=== PATIENT | male | born 2000 | race Two or more races ===

== ENCOUNTER 2024-10-14 03:14 | Inpatient (IN) | payer MEDICAID, OTHER ==
[~2024-10-14] VITALS: Ht 172.7 cm; Wt 96.4 kg
--- NOTE | 2024-10-14 03:48 | ED.PDOC ---
GI ASSESSMENT HPI Comments 24-year-old male who came to ER for abdominal pain. Patient denies any medical problems or any history of abdominal surgeries. States at about 12 midnight, he developed sudden onset, sharp right lower quadrant abdominal pain, 6-7/10 intensity, tender to touch and non radiating. States he felt nauseated, a st arted having watery, non bloody stools. REVIEW OF SYSTEMS: General: No fever, no chills, or fatigue HEENT: No sore throat, no earache, no congestion, no neck pain. Cardiac: No chest pain. No palpitations. Lungs: No shortness of breath, no cough. GI: (+) nausea, no vomiting, (+) diarrhea, no constipation, (+) abdominal pain : No dysuria, frequency, or urgency. No hematuria. Musculoskeletal: No joint pain , no joint swelling, no extremity edema. Skin: No rash, no itching. Neuro: No headache, no dizziness, no weakness PHYSICAL EXAM: General: Awake, alert and oriented. No acute distress. Skin: Skin in warm, dry and intact. Appropriate color for ethnicity. HEENT: The head is normocephalic and atraumatic. Conjunctivae are clear without exudates or hemorrhage. Sclera is non-icteric. EOM are intact. No signs of nystagmus. Eyelids are normal in appearance without swelling or lesions. Oral mucosa is pink and moist Neck: The neck is supple with normal range of motion. No JVD. Cardiac: Heart rate and rhythm are normal. No murmurs, gallops, or rubs are auscultated. Respiratory: No signs of respiratory distress. Lung sounds are clear in all lobes bilaterally without rales, rhonchi, or wheezes. Abdominal: Abdomen is soft, +RLQ tenderness, no guarding or rigidity. Extremities: Upper and lower extremities are atraumatic in appearance without deformity or edema. Neurological: The patient is awake, alert and oriented to person, place, and time with normal speech. Speech is clear. There is no facial asymmetry. Normal gait Psychiatric: Appropriate mood and affect. Good judgement and insight. Chief Complaint: Abdominal Pain Time Seen by MD: 03:47 Reviewed Notes: Nurses Notes Allergies: Coded Allergies: NO KNOWN ALLERGIES (Unverified , 10/14/24) Home Meds Active Scripts Tramadol Hcl (Tramadol Hcl) 50 Mg Tab, 50 MG PO Q6HP PRN for 3 Days, #12 TAB Prov:JUNIOR KIM DEPARTMENT CHAIRPERSON 10/15/24 Information Source: Patient Mode of Arrival: Ambulatory Timing: Hours Duration: Since onset Prehospital treatment: None Quality: Sharp Vomitus: None Stool: Watery Severity: Moderate Recent: None Recent Hx of: None Pain Location: RLQ Past Medical History PAST MEDICAL HISTORY: Denies Surgical History: Denies all surgeries Family History Family History: Reviewed,noncontributory to illness Social History Smoker: Non-Smoker Alcohol: Denies ETOH Use Drugs: Denies Drug Use Lives In: Home Was a procedure done? Was a procedure done?: No GI differential Dx Differential Diagnosis: Appendicitis, Cholecystitis, Constipation, Diverticular disease, Gastritis/PUD, Gastroenteritis, Inflammatory BD, UTI, Urolithiasis, Dehydration, Food Poisoning, Kidney Stone, Other X-Ray, Labs, Meds, VS Vital Signs Date Time Temp Pulse Resp B/P (MAP) Pulse Ox O2 Delivery O2 Flow Rate FiO2 10/14/24 08:00 97.5 58 16 125/71 (89) 99 97.5 10/14/24 05:58 67 16 125/90 (102) 95 10/14/24 03:16 98.5 72 18 129/95 98 98.5 Lab Test 10/14/24 03:53 10/14/24 03:36 Range/Units Urine Color Yellow Yellow Urine Clarity Clear Clear Urine pH 5.5 5.0-9.0 Urine Specific [place] 1.033 1.001-1.035 Urine Protein Trace H Negative Urine Ketones Negative Negative Urine Blood Negative Negative /uL Urine Nitrite Negative Negative Urine Bilirubin Negative Negative Urine Urobilinogen Normal Negative mg/dL Urine Leukocyte Esterase Negative Negative /uL Urine RBC 3 0 - 3 /hpf Urine Microscopic WBC 1 0-3 /HPF Urine Squamous Epithelial Cells Few <5 /hpf Urine Bacteria None seen None Seen /hpf Urine Mucus Few None Seen Urine Sperm Present None Seen /hpf Urine Glucose Normal Normal mg/dL White Blood Count 13.5 H 4.4-10.8 10^3/uL Red Blood Count 4.65 4.5-5.90 10^6/uL Hemoglobin 14.5 13.5-17.5 g/dL Hematocrit 41.4 41.0-53.0 % Mean Corpuscular Volume 89.1 80.0-100.0 fL Mean Corpuscular Hemoglobin 31.2 28.0-32.0 pg Mean Corpuscular Hemoglobin Concent 35.0 32.0-36.0 g/dL Red Cell Distribution Width 12.6 11.8-14.3 % Platelet Count 238 140-450 10^3/uL Mean Platelet Volume 9.8 6.9-10.8 fL Neutrophils (%) (Auto) 78.9 37.0-80.0 % Lymphocytes (%) (Auto) 13.8 10.0-50.0 % Monocytes (%) (Auto) 6.3 0.0-12.0 % Eosinophils (%) (Auto) 0.6 0.0-7.0 % Basophils (%) (Auto) 0.4 0.0-2.0 % Neutrophils # (Auto) 10.6 H 1.6-8.6 10 ^3/uL Lymphocytes # (Auto) 1.9 0.4-5.4 10 ^3/uL Monocytes # (Auto) 0.9 0-1.3 10 ^3/uL Eosinophils # (Auto) 0.1 0-0.8 10 ^3/uL Basophils # (Auto) 0.1 0-0.2 10 ^3/uL Nucleated Red Blood Cells 0.0 % Sodium Level 140 136-145 mmol/L Potassium Level 3.7 3.5-5.1 mmol/L Chloride Level 106 98-107 mmol/L Carbon Dioxide Level 24 20-31 mmol/L Anion Gap 10 5-15 Blood Urea Nitrogen 11 9-23 mg/dL Creatinine 0.96 0.700-1.30 mg/dL Glomerular Filtration Rate Calc 112 >90 mL/min BUN/Creatinine Ratio 11.5 10.0-20.0 Serum Glucose 100 74-106 mg/dL Calcium Level 9.5 8.7-10.4 mg/dL Exam: CT CT AB PEL WO CON-NO ORAL OR IV History: RLQ pain Comparison Study: None Technique: Multidetector spiral CT of the abdomen and pelvis was performed from lung bases to pubic symphysis. Imaging was performed without intravenous contrast. Coronal and sagittal multiplanar reformats were obtained from the axial data set by the technologist. Radiation Dose : 1. Abdomen/Pelvis: CTDIvol 12.57 mGy, DLP 738.1 mGy*cm. Findings: Evaluation of vasculature and solid organs is limited due to lack of intravenous contrast use. Lung Bases: Lung bases are clear. Visualized portions of the heart and pericardium are unremarkable. Liver: The liver is normal in size. No focal lesions. Diffusely hypoattenuating liver parenchyma consistent with hepatic steatosis. Gallbladder and Biliary Tree: The gallbladder is unremarkable. No intrahepatic or extrahepatic biliary ductal dilatation. Spleen: Unremarkable Pancreas: The pancreas is grossly unremarkable. Adrenal Glands: Unremarkable Kidneys: Kidneys are unremarkable without calculi or hydronephrosis. GI tract: The stomach is grossly normal in appearance. No evidence of small bowel wall thickening or abnormal dilatation to suggest bowel obstruction. Colonic diverticulosis without acute diverticulitis. The appendix is dilated measuring 8 mm with very mild fat stranding seen on the axial images. Peritoneum/mesentery/retroperitoneum. No evidence of free intraperitoneal air. No ascites. No evidence of suspicious lymphadenopathy. Abdominal Wall: Unremarkable. Vasculature: The visualized abdominal aorta is normal in size and caliber. Evaluation of abdominal and pelvic vessels is limited due to lack of intravenous contrast. Urinary Bladder: Grossly unremarkable for degree of distention. Pelvic Organs: Unremarkable. Musculoskeletal: No aggressive focal bony lesions, acute fractures or dislocatio n. IMPRESSION: 1. Mildly dilated appendix measuring 8 mm mild periappendiceal fat stranding may represent early acute appendicitis. No fluid collection. No pneumoperitoneum. 2. Hepatic steatosis. 3. Colonic diverticulosis without acute diverticulitis. Time of 1ST Reevaluation: 03:43 Reevaluation 1ST: Unchanged Patient Education/Counseling: Need For Follow Up Family Education/Counseling: No Family Present SEPSIS Sepsis Screen Date sepsis recognized/suspect: Oct 14, 2024 Time Sepsis recognized/suspect: 318 Recent Procedure: No On Antibiotic Therapy: No Respiratory Rate >20: No Heart Rate >90: No Temp<36 C (96.8 F) or >38.3 C: No SBP <90 or MAP <65 mmHG: No New Acute Mental Status Change: No Is the patient on CPAP, BIPAP,: No Physician Orders Ct Ab Pel Wo Con-No Oral Or Iv (10/14/24 03:33) * Surgical Consult (10/14/24 ) Vital Signs Date Time Temp Pulse Resp B/P (MAP) Pulse Ox O2 Delivery O2 Flow Rate FiO2 10/14/24 08:00 97.5 58 16 125/71 (89) 99 97.5 10/14/24 05:58 67 16 125/90 (102) 95 10/14/24 03:16 98.5 72 18 129/95 98 98.5 Laboratory Tests Test 10/14/24 03:36 White Blood Count 13.5 10^3/uL (4.4-10.8) H Departure 1 Departure Time of Disposition: 04:40 Impression: Primary Impression: Abdominal pain Disposition: ADMITTED INPATIENT Condition: Stable e-Prescriptions Tramadol Hcl (Tramadol Hcl) 50 Mg Tab 50 MG PO Q6HP PRN for 3 Days, #12 TAB Prov: ESTHELAJUNIOR HOLLEY Noe DEPARTMENT CHAIRPERSON 10/15/24 Comments MDM: 24-year-old male presents to the emergency department with 3 hours of right lower quadrant abdominal pain. Initial evaluation included thorough history, physical examination and a ppropriate diagnostic testing. Based on the clinical presentation and diagnostic findings, the patient appears to have suspected early appendicitis on CT scan. Given the complexity of the case and need for further management patient is being admitted to the hospitalist service for further surgical consultation, monitoring, treatment and evaluation. Risks, benefits and alternatives of admission and proposed interventions were discussed with the patient. Patient is in agreement with the plan. Extensive evaluation was performed in attempt to identify or rule out: (See differential diagnosis section) The following tests were ordered, and results were reviewed by me and discussed with patient: (See diagnostic results section) Decision regarding hospitalization or escalation of hospital level of care: Risk and benefits of admission for further treatment of patient's condition was considered. Due to patient's current clinical condition, high risk of decline and poor outcome if discharged and need for further inpatient management and m onitoring, patient will be admitted to the hospital. Critical Care Note Critical Care Time?: No Stability Stability form required: No Heart Score Heart Score: Heart Score Response (Comments) Value History N/A 0 EKG N/A 0 Age N/A 0 Risk Factors N/A 0 Troponin N/A 0 Total 0 I personally scribed for JILLIAN LO MD ([email or web address]) on 10/14/24 at 03:48. Electronically submitted by Yusef Avila ([email or web address]). I personally scribed for JILLIAN LO MD ([email or web address]) on 10/14/24 at 04:34. Electronically submitted by Yusef Avila ([email or web address]). JILLIAN LO MD Oct 14, 2024 03:48
[2024-10-14 03:54] LABS: Hematocrit 41.4 % (41.0-53.0); Hemoglobin 14.5 g/dL (13.5-17.5); Mean Corpuscular Hemoglobin 31.2 pg (28.0-32.0); Mean Corpuscular Volume 89.1 fL (80.0-100.0); Nucleated Red Blood Cells % 0.0 %
[2024-10-14 04:01] LABS: Chloride 106 mmol/L (98-107); Potassium 3.7 mmol/L (3.5-5.1); Sodium 140 mmol/L (136-145)
[2024-10-14 04:02] LABS: Anion Gap 10 (5-15); Calcium 9.5 mg/dL (8.7-10.4); Carbon Dioxide 24 mmol/L (20-31)
[2024-10-14 04:07] LABS: BUN/Creatinine Ratio 11.5 (10.0-20.0); Blood Urea Nitrogen 11 mg/dL (9-23); Glucose 100 mg/dL (74-106)
[2024-10-14 04:12] LABS: Urine Protein, UAD TRACE (Negative)
--- NOTE | 2024-10-14 04:15 | DVH ---
Exam: CT CT AB PEL WO CON-NO ORAL OR IV History: RLQ pain Comparison Study: None Technique: Multidetector spiral CT of the abdomen and pelvis was performed from lung bases to pubic s ymphysis. Imaging was performed without intravenous contrast. Coronal and sagittal multiplanar reform ats were obtained from the axial data set by the technologist. Radiation Dose : 1. Abdomen/Pelvis: CTDIvol 12.57 mGy, DLP 738.1 mGy*cm. Findings: Evaluation of vasculature and solid organs is limited due to lack of intravenous contrast use. Lung Bases: Lung bases are clear. Visualized portions of the heart and pericardium are unremarkable. Liver: The liver is normal in size. No focal lesions. Diffusely hypoattenuating liver parenchyma con sistent with hepatic steatosis. Gallbladder and Biliary Tree: The gallbladder is unremarkable. No intrahepatic or extrahepatic bilia ry ductal dilatation. Spleen: Unremarkable Pancreas: The pancreas is grossly unremarkable. Adrenal Glands: Unremarkable Kidneys: Kidneys are unremarkable without calculi or hydronephrosis. GI tract: The stomach is grossly normal in appearance. No evidence of small bowel wall thickening or abnormal dilatation to suggest bowel obstruction. Colonic diverticulosis without acute diverticulitis . The appendix is dilated measuring 8 mm with very mild fat stranding seen on the axial images. Peritoneum/mesentery/retroperitoneum. No evidence of free intraperitoneal air. No ascites. No evidenc e of suspicious lymphadenopathy. Abdominal Wall: Unremarkable. Vasculature: The visualized abdominal aorta is normal in size and caliber. Evaluation of abdominal a nd pelvic vessels is limited due to lack of intravenous contrast. Urinary Bladder: Grossly unremarkable for degree of distention. Pelvic Organs: Unremarkable. Musculoskeletal: No aggressive focal bony lesions, acute fractures or dislocation. IMPRESSION: 1. Mildly dilated appendix measuring 8 mm mild periappendiceal fat stranding may represent early acut e appendicitis. No fluid collection. No pneumoperitoneum. 2. Hepatic steatosis. 3. Colonic diverticulosis without acute diverticulitis.
[2024-10-14] MEDS: PIPERACILLIN-TAZOB 3.375GM 100 ML IV ONE (05:43)
[2024-10-14] MEDS: SODIUM CHLORIDE 0.9% 1,000 ML IV ONE (05:43)
--- NOTE | 2024-10-14 08:04 | DVHHP2 ---
Admitting Diagnosis: Abdominal pain History of Present Illness 24 y/o male patient presents with complain of RLQ abdominal pain. Patient states pain developed suddenly and is non-radiating. He denies history of abdominal surgery. While in the emergency department the patient was evaluated by the provider, As per provider: Labs, vital signs, and imagining monitored. Patient will be admitted for further evaluation and treatment. I discussed admission with the patient/family and is in agreement to treatment plan. Allergies: Coded Allergies: NO KNOWN ALLERGIES (Unverified , 10/14/24) Home Meds No Active Prescriptions or Reported Meds Current Medications Current Medications Medications (Trade) Dose Ordered Sig/Issa Route PRN Reason Start Time Stop Time Status Last Admin Sodium Chloride 1,000 ml @ 120 mls/hr Q8H20M IV 10/14/24 08:15 Ondansetron HCl (Zofran) 4 mg Q4HP PRN IV NAUSEA / VOMITING 10/14/24 08:15 Morphine Sulfate 2 mg Q4HPRN PRN IV SEVERE PAIN (7-10 PAIN SCALE) 10/14/24 08:15 Ondansetron HCl (Zofran) 4 mg ONCE PRN IV NAUSEA / VOMITING 10/14/24 21:30 10/14/24 21:31 DC Naloxone HCl (Narcan) 0.4 mg Q10M PRN IV NARCOTIC REVERSAL 10/14/24 21:30 10/14/24 21:51 DC Flumazenil (Romazicon Injection) 0.2 mg ONCE PRN IV BENZODIAZEPINE REVERSAL 10/14/24 21:30 10/14/24 21:31 DC Hydralazine HCl (Apresoline Injection) 5 mg Q10M PRN IV SBP>160 10/14/24 21:30 10/14/24 22:21 Ephedrine Sulfate (ePHEDrine SULFATE) 10 mg Q10M PRN IV SBP LESS THAN 90 10/14/24 21:30 10/14/24 22:11 Fentanyl Citrate 25 mcg Q1HP PRN IV BREAKTHROUGH PAIN (7-10) 10/14/24 21:30 10/14/24 21:31 DC Hydromorphone HCl (Dilaudid Injection) 0.5 mg Q10M PRN IV SEVERE PAIN (7-10 PAIN SCALE) 10/14/24 21:30 10/14/24 22:11 10/14/24 21:35 Oxycodone HCl 10 mg ONCE PRN PO MODERATE PAIN (4-6 PAIN SCALE) 10/14/24 21:30 Review of Systems Constitutional: denies chills, denies fever, denies malaise Eyes: denies eye pain, denies vision change ENT: denies ear pain, denies headache, denies nasal congestion, denies painful swallowing, denies voice change Cardiovascular: denies chest pain, denies edema, denies orthopnea, denies palpitations, denies paroxysmal nocturnal dyspnea Respiratory: denies cough, denies shortness of breath Gastrointestinal: denies constipation, denies diarrhea, denies nausea, denies vomiting Genitourinary: denies dysuria, denies frequent urination, denies urethral disch arge Musculoskeletal: denies back pain, denies joint pain, denies muscle pain Skin: denies bruising, denies itching, denies rash Neurological: denies focal weakness, denies headache, denies sensory changes Psychiatric: denies anxiety, denies depression Endocrine: denies polydipsia, denies polyuria Hematologic/Lymphatic: denies easy bleeding, denies easy bruising, denies enlarged lymph nodes Allergic/Immunologic: denies allergy, denies hives Vital Signs Vital Signs Date Time Temp Pulse Resp B/P (MAP) Pulse Ox O2 Delivery O2 Flow Rate FiO2 10/14/24 21:37 45 18 133/86 (102) 100 10/14/24 21:12 97.0 97.0 10/14/24 21:12 Mask 10.0 10/14/24 21:12 100 Physical Exam General Appearance: alert, no distress HEENT: EOMI, PERRLA, normal external inspect of ears, no icterus, no nasal judy inage Neck: no carotid bruit, no jugular venous distention (JVD), no lymphadenopathy Chest: normal thorax Respiratory: clear to auscultation, normal air movement Cardiovascular: regular rate and rhythm, no diastolic murmur, no jugular venous distention (JVD), no rub, no systolic murmur Abdominal: soft, no hepatomegaly, no mass, no splenomegaly Genitourinary: grossly normal external Musculoskeletal: no joint tenderness, no swelling Extremities: normal pulses, no calf tenderness, no clubbing, no cyanosis, no edema Skin: no bruising, no jaundice, no rash Neurological: alert, No focal deficit SEPSIS Sepsis Screen Date sepsis recognized/suspect: Oct 14, 2024 Time Sepsis recognized/suspect: 601 Recent Procedure: No On Antibiotic Therapy: No Respiratory Rate >20: No Heart Rate >90: No Temp<36 C (96.8 F) or >38.3 C: No SBP <90 or MAP <65 mmHG: No New Acute Mental Status Change: No Is the patient on CPAP, BIPAP,: Yes Physician Orders Ct Ab Pel Wo Con-No Oral Or Iv (10/14/24 03:33) * Surgical Consult (10/14/24 ) Admit (10/14/24 08:01) Code Status (10/14/24 08:01) Sodium Chloride 0.9% (10/14/24 08:15) Ondansetron Hcl (Zofran) (10/14/24 08:15) Complete Blood Count (10/15/24 04:00) Comprehensive Metabolic Panel (10/15/24 04:00) Condition: Fair (10/14/24 08:01) Morphine Sulfate Injection (10/14/24 08:15) Sequential Compression Device (10/14/24 ) Obtain Consent For: (10/14/24 12:26) Obtain Consent For Anesthesia (10/14/24 12:26) Field Operations Technician (10/14/24 21:17) Notify Anesth. For Changes: (10/14/24 21:17) Pulse Ox Assessment (10/14/24 21:17) Bear Hugger For Temp <94.5f (10/14/24 21:17) May Have Head Of Bed Up (10/14/24 21:17) Follow Iv With Surgeon Orders (10/14/24 21:17) Discharge To Room Per Criteria (10/14/24 21:17) Hydralazine Injection (Apresoline Inject (10/14/24 21:30) Ephedrine Sulfate (Ephedrine Sulfate) (10/14/24 21:30) Hydromorphone Injection (Dilaudid Inject (10/14/24 21:30) Oxycodone Immediate Rel Tablet (10/14/24 21:30) Clear Liq Diet (10/15/24 Breakfast) Ambulate (10/14/24 21:30) Abdominal Binder (10/14/24 21:30) Vital Signs Date Time Temp Pulse Resp B/P (MAP) Pulse Ox O2 Delivery O2 Flow Rate FiO2 10/14/24 21:37 45 18 133/86 (102) 100 10/14/24 21:22 47 19 135/88 (104) 100 10/14/24 21:17 46 19 131/92 (105) 100 10/14/24 21:12 97.0 49 12 139/96 (110) 100 97.0 10/14/24 21:12 49 12 100 Mask 10.0 10/14/24 21:12 Mask 10.0 100 10/14/24 18:05 98.6 98.6 10/14/24 16:05 Room Air* 0 21 10/14/24 15:23 98.6 61 16 125/76 (92) 98 98.6 10/14/24 13:28 98.4 16 140/93 (109) 96 98.4 10/14/24 10:29 98.2 58 16 128/92 (104) 99 98.2 10/14/24 08:00 97.5 58 16 125/71 (89) 99 97.5 10/14/24 05:58 67 16 125/90 (102) 95 10/14/24 03:16 98.5 72 18 129/95 98 98.5 Laboratory Tests Test 10/14/24 03:36 White Blood Count 13.5 10^3/uL (4.4-10.8) H Medications Medications Dose Ordered Sig/Issa Route Start Time Stop Time Status Last Admin Dose Admin Bupivacaine HCl 50 ml STK-MED ONCE .ROUTE 10/14/24 20:12 10/14/24 20:09 DC 10/14/24 20:56 Hydromorphone HCl 0.5 mg Q10M PRN IV 10/14/24 21:30 10/14/24 22:11 10/14/24 21:35 Results Labs Test 10/14/24 03:53 10/14/24 03:36 Range/Units Urine Color Yellow Yellow Urine Clarity Clear Clear Urine pH 5.5 5.0-9.0 Urine Specific [place] 1.033 1.001-1.035 Urine Protein Trace H Negative Urine Ketones Negative Negative Urine Blood Negative Negative /uL Urine Nitrite Negative Negative Urine Bilirubin Negative Negative Urine Urobilinogen Normal Negative mg/dL Urine Leukocyte Esterase Negative Negative /uL Urine RBC 3 0 - 3 /hpf Urine Microscopic WBC 1 0-3 /HPF Urine Squamous Epithelial Cells Few <5 /hpf Urine Bacteria None seen None Seen /hpf Urine Mucus Few None Seen Urine Sperm Present None Seen /hpf Urine Glucose Normal Normal mg/dL White Blood Count 13.5 H 4.4-10.8 10^3/uL Red Blood Count 4.65 4.5-5.90 10^6/uL Hemoglobin 14.5 13.5-17.5 g/dL Hematocrit 41.4 41.0-53.0 % Mean Corpuscular Volume 89.1 80.0-100.0 fL Mean Corpuscular Hemoglobin 31.2 28.0-32.0 pg Mean Corpuscular Hemoglobin Concent 35.0 32.0-36.0 g/dL Red Cell Distribution Width 12.6 11.8-14.3 % Platelet Count 238 140-450 10^3/uL Mean Platelet Volume 9.8 6.9-10.8 fL Neutrophils (%) (Auto) 78.9 37.0-80.0 % Lymphocytes (%) (Auto) 13.8 10.0-50.0 % Monocytes (%) (Auto) 6.3 0.0-12.0 % Eosinophils (%) (Auto) 0.6 0.0-7.0 % Basophils (%) (Auto) 0.4 0.0-2.0 % Neutrophils # (Auto) 10.6 H 1.6-8.6 10 ^3/uL Lymphocytes # (Auto) 1.9 0.4-5.4 10 ^3/uL Monocytes # (Auto) 0.9 0-1.3 10 ^3/uL Eosinophils # (Auto) 0.1 0-0.8 10 ^3/uL Basophils # (Auto) 0.1 0-0.2 10 ^3/uL Nucleated Red Blood Cells 0.0 % Sodium Level 140 136-145 mmol/L Potassium Level 3.7 3.5-5.1 mmol/L Chloride Level 106 98-107 mmol/L Carbon Dioxide Level 24 20-31 mmol/L Anion Gap 10 5-15 Blood Urea Nitrogen 11 9-23 mg/dL Creatinine 0.96 0.700-1.30 mg/dL Glomerular Filtration Rate Calc 112 >90 mL/min BUN/Creatinine Ratio 11.5 10.0-20.0 Serum Glucose 100 74-106 mg/dL Calcium Level 9.5 8.7-10.4 mg/dL Plan 1. Acute appendicitis Monitor, surgical consult, NPO, PRN pain meds, IV fluids, SCD's Plan discussed with: Patient, Other JUNIOR KIM TRANSPORTATION OFFICER Oct 14, 2024 08:04
[2024-10-14] MEDS ORDERED: ONDANSETRON HCL 4 MG/2 ML VIAL IV PRN ×2 (08:15→21:30)
[2024-10-14] MEDS: SODIUM CHLORIDE 0.9% 1,000 ML IV SCH (08:15)
[2024-10-14] MEDS ORDERED: MORPHINE SULFATE INJ 2 MG/ml SYRG IV PRN (08:15)
--- NOTE | 2024-10-14 12:26 | DVHINCON2 ---
Date of service: Oct 14, 2024 Allergies: Coded Allergies: NO KNOWN ALLERGIES (Unverified , 10/14/24) Current Medications Current Medications Medications (Trade) Dose Ordered Sig/Issa Route PRN Reason Start Time Stop Time Status Last Admin Sodium Chloride 1,000 ml @ 120 mls/hr Q8H20M IV 10/14/24 08:15 Ondansetron HCl (Zofran) 4 mg Q4HP PRN IV NAUSEA / VOMITING 10/14/24 08:15 Morphine Sulfate 2 mg Q4HPRN PRN IV SEVERE PAIN (7-10 PAIN SCALE) 10/14/24 08:15 Vital Signs Vital Signs Date Time Temp Pulse Resp B/P (MAP) Pulse Ox O2 Delivery O2 Flow Rate FiO2 10/14/24 10:29 98.2 58 16 128/92 (104) 99 98.2 Labs/Diagnostic Data Labs Test 10/14/24 03:53 10/14/24 03:36 Range/Units Urine Color Yellow Yellow Urine Clarity Clear Clear Urine pH 5.5 5.0-9.0 Urine Specific [place] 1.033 1.001-1.035 Urine Protein Trace H Negative Urine Ketones Negative Negative Urine Blood Negative Negative /uL Urine Nitrite Negative Negative Urine Bilirubin Negative Negative Urine Urobilinogen Normal Negative mg/dL Urine Leukocyte Esterase Negative Negative /uL Urine RBC 3 0 - 3 /hpf Urine Microscopic WBC 1 0-3 /HPF Urine Squamous Epithelial Cells Few <5 /hpf Urine Bacteria None seen None Seen /hpf Urine Mucus Few None Seen Urine Sperm Present None Seen /hpf Urine Glucose Normal Normal mg/dL White Blood Count 13.5 H 4.4-10.8 10^3/uL Red Blood Count 4.65 4.5-5.90 10^6/uL Hemoglobin 14.5 13.5-17.5 g/dL Hematocrit 41.4 41.0-53.0 % Mean Corpuscular Volume 89.1 80.0-100.0 fL Mean Corpuscular Hemoglobin 31.2 28.0-32.0 pg Mean Corpuscular Hemoglobin Concent 35.0 32.0-36.0 g/dL Red Cell Distribution Width 12.6 11.8-14.3 % Platelet Count 238 140-450 10^3/uL Mean Platelet Volume 9.8 6.9-10.8 fL Neutrophils (%) (Auto) 78.9 37.0-80.0 % Lymphocytes (%) (Auto) 13.8 10.0-50.0 % Monocytes (%) (Auto) 6.3 0.0-12.0 % Eosinophils (%) (Auto) 0.6 0.0-7.0 % Basophils (%) (Auto) 0.4 0.0-2.0 % Neutrophils # (Auto) 10.6 H 1.6-8.6 10 ^3/uL Lymphocytes # (Auto) 1.9 0.4-5.4 10 ^3/uL Monocytes # (Auto) 0.9 0-1.3 10 ^3/uL Eosinophils # (Auto) 0.1 0-0.8 10 ^3/uL Basophils # (Auto) 0.1 0-0.2 10 ^3/uL Nucleated Red Blood Cells 0.0 % Sodium Level 140 136-145 mmol/L Potassium Level 3.7 3.5-5.1 mmol/L Chloride Level 106 98-107 mmol/L Carbon Dioxide Level 24 20-31 mmol/L Anion Gap 10 5-15 Blood Urea Nitrogen 11 9-23 mg/dL Creatinine 0.96 0.700-1.30 mg/dL Glomerular Filtration Rate Calc 112 >90 mL/min BUN/Creatinine Ratio 11.5 10.0-20.0 Serum Glucose 100 74-106 mg/dL Calcium Level 9.5 8.7-10.4 mg/dL Assessment [id number] c/o RLQ PAIN AC APPENDICITIS LAP/OPEN APPENDECTOMY BENEFITS RISK DISCUSSED PT CONSENTS Plan discussed with: Patient CHRISTIAN FIELDS MD Oct 14, 2024 12:26
[2024-10-14] MEDS ORDERED: GLYCOPYRROLATE 0.2 MG/ML 1ML VIAL ONE (16:35)
[2024-10-14] MEDS ORDERED: SUGAMMADEX 200mg/2ml Vial (100MG/ML) IV ONE (16:35)
[2024-10-14] MEDS ORDERED: ONDANSETRON HCL 4 MG/2 ML VIAL ONE (16:35)
[2024-10-14] MEDS ORDERED: ROCURONIUM 10MG/ML 10ML VIAL IV ONE (16:35)
[2024-10-14] MEDS ORDERED: KETAMINE 50mg/ML 1ml syringe ONE (16:35)
[2024-10-14] MEDS ORDERED: KETOROLAC TROMETH 30 MG/ML 1ML VIAL ONE (16:35)
[2024-10-14] MEDS ORDERED: PROPOFOL 10 MG/ML 20 ML IV ONE (16:35)
[2024-10-14] MEDS ORDERED: fentaNYL CITRATE 100 MCG/2 ML VL ONE (16:36)
[2024-10-14] MEDS ORDERED: LIDOCAINE 2% (LOCAL ANESTH.) PF 5ml SDV ONE (16:38)
--- NOTE | 2024-10-14 16:45 | DVHINCON2 ---
DATE OF CONSULTATION: 10/14/2024 HISTORY OF PRESENT ILLNESS: This patient is 24 years old, coming in with right lower quadrant pain. It started yesterday. It got worse. He came to the Emergency Room, and I was asked to see him. No nausea or vomiting. No constipation or diarrhea. No hematemesis or melena. No bleeding per rectum. He had this pain happened 2 years ago. At that time, it subsided. There was no workup done, and this pain is similar and is not resolved yet. No fever or chills. PAST MEDICAL HISTORY: No diabetes or hypertension. PAST SURGICAL HISTORY: Nothing significant. PHYSICAL EXAMINATION: VITAL SIGNS: Afebrile, stable signs. HEENT: No evidence of pallor, cyanosis, or jaundice. NECK: Supple and nontender with no thyromegaly or lymphadenopathy. CHEST AND LUNGS: Clear. HEART: Within normal limits. ABDOMEN: Soft. Tender in the right lower quadrant with no evidence of rebound. EXTREMITIES: Unremarkable. NEUROLOGICAL: Intact. CLINICAL IMPRESSION: Acute appendicitis. PLAN: Laparoscopic possible open appendectomy. Benefits were discussed and a consent obtained. MD ROSY Whitfield/NINA TID: [id number] RECEIPT: [id number] cc: Juan Diego Rose
[2024-10-14 18:05] VITALS: TEMP 98.6
[2024-10-14] MEDS ORDERED: CELECOXIB 100 MG CAP ONE (19:09)
[2024-10-14] MEDS ORDERED: ACETAMINOPHEN IV 100 ML IV ONE (19:09)
[2024-10-14] MEDS ORDERED: GABAPENTIN 300 MG CAP ONE (19:09)
[2024-10-14] MEDS: ACETAMINOPHEN IV 1000 MG/100ML (10MG/ML) IV ONE (19:15)
[2024-10-14] MEDS: GABAPENTIN 300 MG CAP PO ONE (19:15)
[2024-10-14] MEDS: CELECOXIB 100 MG CAP PO ONE (19:15)
[2024-10-14 20:00] VITALS: BP 125/88; PULSE 52; RESP 17; RESP 18; TEMP 97.9; O2SAT 100
[2024-10-14] MEDS ORDERED: SODIUM CHLORIDE LOCK 10 ML ONE (20:12)
[2024-10-14] MEDS ORDERED: ceFAZolin 1GM VL ONE (20:12)
[2024-10-14] MEDS ORDERED: diphenhdrAMINE HCL 50 MG/1 ML VL ONE (20:27)
[2024-10-14] MEDS: BUPIVACAINE 0.25% INJ 50ML VIAL ONE (20:56)
[2024-10-14 21:12] VITALS: PULSE 49; RESP 12; O2SAT 100
--- NOTE | 2024-10-14 21:12 | DVHOP2 ---
Operative Report [id number] AC APPENDICITIS LAP APPENDECTOMY EBL 5 CC NO DRAINS NO COMPLICATIONS STABLE TRANSFER TO RECOVERY ROOM CHRISTIAN FIELDS MD Oct 14, 2024 21:12
[2024-10-14 21:30] VITALS: PULSE 63; RESP 16; O2SAT 95
[2024-10-14] MEDS ORDERED: fentaNYL CITRATE 100 MCG/2 ML VL IV PRN (21:30)
[2024-10-14] MEDS ORDERED: FLUMAZENIL 0.1 MG/ML INJ 10ML MDV IV PRN (21:30)
[2024-10-14] MEDS ORDERED: NALOXONE HCL 0.4 MG/ML VIAL IV PRN (21:30)
[2024-10-14] MEDS ORDERED: hydrALAZINE HCL 20 MG/ML VL IV PRN (21:30)
--- NOTE | 2024-10-14 21:34 | DVHOP ---
PREOPERATIVE DIAGNOSIS: Acute appendicitis. POSTOPERATIVE DIAGNOSIS: Acute appendicitis. PROCEDURE: Laparoscopic appendectomy. SURGEON: Alen King MD LOGGER ALL ROUND: None ANESTHESIA: General ESTIMATED BLOOD LOSS: Close to 5 mL DRAINS: No drains were used. COMPLICATIONS: No complications were encountered. DESCRIPTION OF PROCEDURE: The patient was prepped and draped in the usual sterile fashion in the supine position and a supraumbilical incision was applied. It was taken down to the fascia. The Veress needle was introduced and CO2 insufflation was started with a pressure of 15 mmHg. The needle was withdrawn and replaced by the 10 mm trocar. The telescope introduced and the appendix was found to be acutely inflamed and distended. Two 5 mm ports were applied more inferiorly, one above the symphysis, the third midway between the upper two. The patient was placed in a Trendelenburg and right lateral decubitus position. The camera was moved to the lowermost 5 mm port. The upper 2 ports were used for surgery. The mesoappendix was clipped at the base, divided distal to that using the Harmonic device. The base of the appendix was then cleared for transection using the Endo JUAN DAVID stapling device. The appendix released in this fashion was retrieved from the supraumbilical wound in an EndoCatch bag without any complication. Hemostasis was excellent. The irrigation fluid was removed both from the right lower quadrant and the pelvis. The patient was then placed supine. EndoClose suture was used for the fascial closure of the supraumbilical wound. All the ports were withdrawn after all the CO2 was let out and the patient was placed supine. The wounds were then brought together using 3-0 Monocryl suture in a subcuticular fashion. Surgical glue was applied. The patient tolerated the procedure well and was taken back to the recovery room in a stable condition. MD ROSY Whitfield/SANTINO TID: [id number] RECEIPT: [id number] cc: Trista Muniz NP
[2024-10-14] MEDS: HYDROmorphone HCL 2 MG/ML VL/or syr IV PRN (21:35)
[2024-10-15 01:00] VITALS: BP 104/67; PULSE 51; RESP 16; TEMP 98; O2SAT 95
[2024-10-15 05:00] VITALS: BP 114/84; PULSE 51; RESP 19; TEMP 98; O2SAT 95
[2024-10-15 07:41] LABS: Hematocrit 40.2 % (41.0-53.0); Hemoglobin 14.1 g/dL (13.5-17.5); Mean Corpuscular Hemoglobin 31.6 pg (28.0-32.0); Mean Corpuscular Volume 90.3 fL (80.0-100.0); Nucleated Red Blood Cells % 0.0 %
[2024-10-15 07:53] LABS: Alanine Aminotransferase 20 U/L (7-40); Albumin 4.6 g/dL (3.2-4.8); Alkaline Phosphatase 57 U/L (46-116); Anion Gap 11 (5-15); BUN/Creatinine Ratio 7.3 (10.0-20.0); Bilirubin, Total 0.8 mg/dL (0.2-1.0); Calcium 9.1 mg/dL (8.7-10.4); Carbon Dioxide 24 mmol/L (20-31); Chloride 107 mmol/L (98-107); Potassium 4.0 mmol/L (3.5-5.1); Sodium 142 mmol/L (136-145); Total Protein 7.1 g/dL (5.7-8.2)
[2024-10-15 08:00] VITALS: PULSE 63; RESP 17; O2SAT 96
[2024-10-15 08:00] LABS: Blood Urea Nitrogen 6 mg/dL (9-23); Glucose 121 mg/dL (74-106)
[2024-10-15 09:00] VITALS: BP 140/83; PULSE 43; RESP 17; TEMP 97.7; O2SAT 96
--- NOTE | 2024-10-15 09:17 | DVHPN2 ---
Progress Note - Dictate vital signs Vital Sign Date Time Temp Pulse Resp B/P (MAP) Pulse Ox O2 Delivery O2 Flow Rate FiO2 10/15/24 09:00 97.7 43 17 140/83 (102) 96 97.7 10/14/24 21:30 Room Air 10/14/24 21:30 95 10/14/24 21:12 10.0 Total Intake and Output 10/14/24 10/14/24 10/15/24 15:00 23:00 07:00 Intake Total 695 ml Output Total 1100 ml Balance -405 ml medications Current Medications Medications Dose Ordered Sig/Issa Route Start Time Stop Time Status Last Admin Dose Admin Sodium Chloride 1,000 ml @ 120 mls/hr [id number] IV 10/14/24 08:15 10/14/24 20:40 120 MLS/HR Ondansetron HCl 4 mg Q4HP PRN IV 10/14/24 08:15 Morphine Sulfate 2 mg Q4HPRN PRN IV 10/14/24 08:15 Oxycodone HCl 10 mg ONCE PRN PO 10/14/24 21:30 10/14/24 22:02 10 MG laboratory and microbiology Laboratory Tests 10/15/24 06:15 Test 10/15/24 06:15 Range/Units Serum Glucose 121 H 74-106 mg/dL JUNIOR KIM NP Oct 15, 2024 09:17
[2024-10-15 12:41] VITALS: BP 122/90; PULSE 63; RESP 16; TEMP 98; O2SAT 98
[2024-10-15] MEDS ORDERED: TRAM50TA2 PO (14:17)
[2024-10-15 15:06] VITALS: BP 122/90; PULSE 63; RESP 16; TEMP 98; O2SAT 98
--- NOTE | 2024-10-15 20:07 | DVHDS2 ---
Discharge Summary Date of Admission Oct 14, 2024 at 08:01 Date of Discharge: Oct 15, 2024 Labs/Diagnostic Data: Laboratory Results Test 10/15/24 06:15 10/14/24 03:53 White Blood Count 6.8 10^3/uL (4.4-10.8) Red Blood Count 4.45 10^6/uL (4.5-5.90) Hemoglobin 14.1 g/dL (13.5-17.5) Hematocrit 40.2 % (41.0-53.0) Mean Corpuscular Volume 90.3 fL (80.0-100.0) Mean Corpuscular Hemoglobin 31.6 pg (28.0-32.0) Mean Corpuscular Hemoglobin Concent 35.0 g/dL (32.0-36.0) Red Cell Distribution Width 12.6 % (11.8-14.3) Platelet Count 220 10^3/uL (140-450) Mean Platelet Volume 10.4 fL (6.9-10.8) Neutrophils (%) (Auto) 86.0 % (37.0-80.0) Lymphocytes (%) (Auto) 12.1 % (10.0-50.0) Monocytes (%) (Auto) 1.8 % (0.0-12.0) Eosinophils (%) (Auto) 0.0 % (0.0-7.0) Basophils (%) (Auto) 0.1 % (0.0-2.0) Neutrophils # (Auto) 5.9 10 ^3/uL (1.6-8.6) Lymphocytes # (Auto) 0.8 10 ^3/uL (0.4-5.4) Monocytes # (Auto) 0.1 10 ^3/uL (0-1.3) Eosinophils # (Auto) 0 10 ^3/uL (0-0.8) Basophils # (Auto) 0 10 ^3/uL (0-0.2) Nucleated Red Blood Cells 0.0 % Sodium Level 142 mmol/L (136-145) Potassium Level 4.0 mmol/L (3.5-5.1) Chloride Level 107 mmol/L (98-107) Carbon Dioxide Level 24 mmol/L (20-31) Anion Gap 11 (5-15) Blood Urea Nitrogen 6 mg/dL (9-23) Creatinine 0.82 mg/dL (0.700-1.30) Glomerular Filtration Rate Calc 124 mL/min (>90) BUN/Creatinine Ratio 7.3 (10.0-20.0) Serum Glucose 121 mg/dL (74-106) Calcium Level 9.1 mg/dL (8.7-10.4) Total Bilirubin 0.8 mg/dL (0.2-1.0) Aspartate Amino Transferase (AST) 19 U/L (13-40) Alanine Aminotransferase (ALT) 20 U/L (7-40) Alkaline Phosphatase 57 U/L (46-116) Total Protein 7.1 g/dL (5.7-8.2) Albumin 4.6 g/dL (3.2-4.8) Urine Color Yellow (Yellow) Urine Clarity Clear (Clear) Urine pH 5.5 (5.0-9.0) Urine Specific Trevor 1.033 (1.001-1.035) Urine Protein Trace (Negative) Urine Ketones Negative (Negative) Urine Blood Negative /uL (Negative) Urine Nitrite Negative (Negative) Urine Bilirubin Negative (Negative) Urine Urobilinogen Normal mg/dL (Negative) Urine Leukocyte Esterase Negative /uL (Negative) Urine RBC 3 /hpf (0 - 3) Urine Microscopic WBC 1 /HPF (0-3) Urine Squamous Epithelial Cells Few /hpf (<5) Urine Bacteria None seen /hpf (None Seen) Urine Mucus Few (None Seen) Urine Sperm Present /hpf (None Seen) Urine Glucose Normal mg/dL (Normal) Other Laboratory Tests 10/15/24 06:15 Brief Hx & Hospital Course: 24 y/o male patient presents with complain of RLQ abdominal pain. Patient states pain developed suddenly and is non-radiating. He denies history of abdominal surgery. Patient was admitted on October 14, [address] imaging showed acute appendicitis. Patient had elevated white blood cell count. Patient has diverticulosis. No diverticulitis was found. General surgery was consulted. Patient is status post laparoscopic appendectomy by Dr. King. Patient was able to pass flatus. Patient was cleared for a diet. Patient was started on a clear liquid diet and advance to a soft diet. patient tolerated diet well. Patient was cleared by general surgeon for discharge. He will follow-up with surgeon in 7 to 10 days and his PCP in 1 week. Pain medication with tramadol was sent to his pharmacy. There were no complaints or new complaints upon discharge, all questions and concerns were answered. Patient was advised to return to the ER or call 911 if any headaches, dizziness, shortness of breath, chest pain, bleeding, fevers, or worsening of medical condition. Patient/Family was counseled about treatment plan, medications, possible side effects, patient verbalized understanding. All questions were answered to the best of my ability. The patient symptoms improved and they are okay to be DC. Condition at Discharge: Stable Final Diagnosis/Problems List Acute appendicitis Discharge Disposition: Home Discharge Instruct/Medications Diet: Regular Activity: No Restrictions, As Tolerated Follow Up/Referral: pcp 1 week gen sx 1-2 weeks Scheduled PRN Tramadol Hcl (Tramadol Hcl), 50 MG PO Q6HP PRN Discharge Statement: "Patient was advised to return to the ER or call 911 if any headaches, dizziness, shortness of breath, chest pain, abdominal pain, bleeding, fevers, or worsening of medical condition. Patient was counseled about treatment plan, medications, possible side effects, patientverbalized understanding. All questions were answered to the best of my ability. This discharge took greater then 30 minutes in planning, reviewing documentation, counseling the patient, and discussing with other team members." ASSESSMENT ASSESSMENT Assessment Acute appendicitis JUNIOR KIM NP Oct 15, 2024 20:07
== END 2024-10-15 16:27 | disposition home or self-care (01) | DRG 234 ==
LOC: ER 03:14 → OVERFLOW 08:01 → WEST WING 18:18
PROVIDERS: ADMIT Nurse Practitioner; ATTEND Nurse Practitioner
PROC: 0DTJ4ZZ Resection of Appendix, Percutaneous Endoscopic Approach (ICD-10-PCS; principal; 2024-10-14 20:13)
DX: K35.80 Unspecified acute appendicitis (principal); Z79.899 Other long term (current) drug therapy
CPT/HCPCS: 36415; 74176; 80048; 80053; 81001; 85025; 96365; G0378; J0131; J0690; J1100; J1885; J2003; J2405; J2543; J2704; J3490